=== PATIENT | male | born 2000 | race Caucasian/White ===

== ENCOUNTER 2025-03-06 10:00 | Emergency (ER) | payer OTHER ==
[~2025-03-06] VITALS: Ht 185.4 cm; Wt 100.9 kg
[2025-03-06 10:14] VITALS: TEMP 99
[2025-03-06 11:17] LABS: PLATELET COUNT (AUTO) 278 K/uL (150-450); RED BLOOD CELL COUNT(AUTO) 4.93 MIL/uL (4.50-5.90); RED CELL DISTRIBUTION WIDTH 12.7 % (11.5-14.5); WHITE BLOOD COUNT (AUTO) 6.8 K/uL (4.5-11.0)
[2025-03-06 11:32] LABS: CALCIUM, TOTAL 9.1 mg/dL (8.8-10.5); CREATININE 0.75 mg/dL (0.60-1.30); GLOMERULAR FILTR. RATE CALC > 60 mL/min (>60); GLUCOSE,RANDOM 117 mg/dL (70-110); SODIUM SERUM 138 mmol/L (136-145); UREA NITROGEN, BLOOD 8 mg/dL (7-18)
[2025-03-06 11:37] VITALS: BP 129/78; PULSE 96; RESP 16; O2SAT 99
== END 2025-03-06 13:21 ==
LOC: EMS 10:07
DX: Z03.821 Encounter for observation for suspected ingested foreign body ruled out (principal); Z65.3 Problems related to other legal circumstances; Z02.89 Encounter for other administrative examinations
CPT/HCPCS: 74176; 80048; 85025; 99284